=== PATIENT | male | born 1975 | race Caucasian/White ===

== ENCOUNTER 2019-08-16 07:29 | Emergency (ER) | payer OTHER, SELFPAY ==
[2019-08-16 07:31] VITALS: BP 157/119; PULSE 70; RESP 17; TEMP 36.3; O2SAT 99; BMI 30.7
--- NOTE | 2019-08-16 07:35 | CT_ITS ---
STUDY: CT ABDOMEN AND PELVIS WITHOUT CONTRAST REASON FOR EXAM: Male, 43 years old. RT FLANK PAIN W/ HEMATURIA RADIATION DOSAGE (If Supplied By Facility): CTDIvol = ( 12.52 ) mGy, DLP = ( 642.17 ) mGycm TECHNIQUE: Transaxial images were obtained from the dome of the diaphragm to the symphysis pubis without oral contrast, and without intravenous contrast. Sagittal and coronal images were reconstructed. Individualized dose optimization techniques were used for this CT. COMPARISON: October 19, 2013. FINDINGS: Lung bases: Minimal congestion. Tiny 2-3 mm right lung base nodules (axial images 2 through 6 series 1002). Heart: Unremarkable. Liver: Diffuse hepatic steatosis. No focal hepatic lesions given noncontrast technique. Gallbladder/biliary ducts: Unremarkable. Pancreas: Unremarkable. Spleen: Punctate splenic granuloma (axial image 32 series 1002). Adrenal glands: Unremarkable. Kidneys/ureters/bladder: Acute minimally obstructive right distal ureteral stone (axial image 156 series 1002) measuring 3 mm. Subtle minimally dilated right ureter. Minimal right perinephric and periureteral fat stranding. No additional renal, ureteral or bladder stones identified. Underdistended urinary bladder. Prostate: Punctate prostate calcification. Large bowel/small bowel: Unremarkable. Appendix: Unremarkable (axial image 112 series 1002). Gastroesophageal junction/stomach: Unremarkable. Retroperitoneum/lymph nodes: No intra-abdominal free air. No ascites. No pathologically enlarged lymph nodes. Vascular: Trace vascular calcifications. No aneurysm. Osseous structures: Mild degenerative features. No acute process. Subcutaneous/soft tissues: Tiny fat-containing umbilical hernia. No acute process. CT/Abdomen/Pelvis without Cont IMPRESSION: Acute minimally obstructive right distal ureteral 3 mm stone Minimal right perinephric and periureteral fat stranding concerning for potential infection (correlate urinalysis and WBC) Stable small lung nodules (statistically benign given unchanged appearance since 2013) Nonemergent findings, as above Electronically Signed: Sarkis Cleveland DO at 8:28 EDT Tel , Service support ,
--- NOTE | 2019-08-16 07:35 | ED.VIS.GEN ---
History of Present Illness Chief Complaint: Flank Pain Informant: Patient Onset: Today Context: Sudden Onset Timing: Intermittent Current Severity: Moderate Maximum Severity: Severe Narrative: The patient is an otherwise healthy 43-year-old male that presents to the emergency department with rather sudden onset right-sided flank pain, nausea, and hematuria. Patient states last night, he had a dull ache in his right flank. He states this morning, the pain got acutely worse. He states it would come in waves. On the way here, he states that he was feeling better, but then the pain came back. He has been mildly nauseated. He denies any fevers or chills. He has no history of prior kidney stone. He is otherwise been in his normal state of health. Prior similar symptoms: No Recent Illness/Hospitalization: No Past Medical History - Allergies and Home Meds Allergies/Adverse Reactions: Allergies bee venom protein (honey bee) Allergy (Verified 08/16/19 07:30) Anaphylaxis Primary Care Physician: Davis Frost DO [Primary Care Provider] - Prior records reviewed: Yes Past Medical History: None Surgical History: noncontributory, - - Knee surgeries Smoking Status: Never smoker - Family History Maternal Family History: Reports: No pertinent history Review of Systems General: Denies: Chills, Fever, Sweats Eyes: Denies: Visual changes - bilaterally, Diplopia ENT: Denies: Rhinorrhea, Sore throat Cardiovascular: Denies: Chest pain, Palpitations Respiratory: Denies: Dyspnea, Cough, Dyspnea on exertion Gastrointestinal: Reports: Nausea. Denies: Abdominal pain, Vomiting, Diarrhea, Melena, Hematochezia Genitourinary: Reports: Hematuria. Denies: Dysuria, Frequency Musculoskeletal: Reports: Back pain. Denies: Extremity Pain Skin: Denies: Rash, Wounds Neurological: Denies: Headache, Weakness, Numbness Physical Exam Vital Signs/Narrative: Vital Signs Temp Pulse Resp BP Pulse Ox 08/16/19 07:31 97.3 F L 70 17 157/119 H 99 Inital Vital Signs reviewed: Yes General: Well nourished, Well developed, No Acute Distress Head: Normocephalic, Atraumatic Eyes: Perrl, EOMI ENT: Moist mucous membranes, No rhinorrhea Neck: Supple, Nontender Cardiovascular: Regular rate, Regular rhythm, No murmurs Respiratory: No distress, CTA bilaterally, Chest nontender Abdomen: Soft, Nontender, Nondistended, Normal bowel sounds Back: Nontender, Normal Inspection Extremities: Nontender, No edema Skin: Normal color, No rash Neurological: Alert, Oriented x3, Cranial nerves II-XII grossly intact, Normal Strength, Normal Sensation Psychological: Normal affect, Normal Mood Diagnostic/Tx/Re-eval Clinical Impression(s) from Imaging Studies Abdomen/Pelvis CT 08/16/19 07:35 IMPRESSION: Acute minimally obstructive right distal ureteral 3 mm stone Minimal right perinephric and periureteral fat stranding concerning for potential infection (correlate urinalysis and WBC) Stable small lung nodules (statistically benign given unchanged appearance since 2013) Nonemergent findings, as above Electronically Signed: Sarkis Cleveland DO at 8:28 EDT Tel , Service support , - Medical Decision Making The patient presents with rather acute onset right flank pain into his right lower quadrant associated with nausea and hematuria. Patient states he is never had symptoms like this before. He was medicated with anti-inflammatories, analgesics, and antiemetics. He did have some improvement of his pain but was still rather uncomfortable. Patient had re-dose of his medications. CT does show a small distal obstructing stone of 2 or 3 mm. Urine does not show evidence of infection. On reevaluation, the patient is resting comfortably. At this point, given the size and location of the stone, along with the fact that his pain is controlled, I do feel that he is safe for outpatient follow-up with urology. He was counseled on concerning symptoms and reasons to return. He will be discharged home. Impression 1. 3 mm right UVJ stone ED Disposition - Plan for ED Patient: Instructions: ED Renal Stone w Colic Prescriptions: Oxycodone HCl/Acetaminophen [Percocet 5/325] 1 tab PO Q6H PRN PRN 3 Days #12 tab PRN Reason: Pain Prescription Printed Ondansetron [Zofran Odt] 4 mg PO Q8H PRN PRN #10 tab PRN Reason: Nausea Prescription Printed Referrals: Odilon Williamson MD [STAFF PHYSICIAN] -
[2019-08-16 07:54] LABS: Absolute Lymphocyte Count 2.35 X10^3/uL (0.83-4.51); Absolute Neutrophil Count 4.6 X10^3/uL (2.0-7.7); Basophil# 0.04 X10^3/uL; Basophil% 0.5 % (0-1); Eosinophil# 0.15 X10^3/uL; Eosinophils% 1.9 % (0-5); Hematocrit 44.3 % (40-54); Hemoglobin 14.7 g/dL (13.0-16.5); Lymphocyte # 2.35 X10^3/ul (4.0); Lymphocyte % 30.5 % (19-41); Mean Corp Hgb Conc 33.2 g/dL (32-36); Mean Corpuscular Volume 96.5 fL (80-94); Monocyte# 0.55 X10^3/uL; Monocyte% 7.1 % (0-10); NRBC Flagged by Analyzer 0 % (0-5); Neutrophil % 59.7 % (47-70); Platelet Count 243 K/mm3 (150-450); RBC Distribution Width CV 12.5 % (11.6-14.6); RBC Distribution Width SD 44.1 fl (35.1-43.9); Red Blood Count 4.59 M/mm3 (4.6-6.2); White Blood Count 7.7 K/mm3 (4.4-11.0)
[2019-08-16] MEDS: Ketorolac 30 MG/ML Syringe IV (07:55)
[2019-08-16] MEDS: Ondansetron 4 MG/2 ML Vial IV (07:55)
[2019-08-16] MEDS: Morphine 4 MG/ML Syringe IV (07:56)
[2019-08-16] MEDS: 0.9% Normal Saline 1,000 ML 250 ML IV (07:57)
[2019-08-16 08:02] LABS: Bacteria 0 SEEN /hpf (None Seen); Mucous, Urine 0 SEEN /hpf (<or=2+); Squamous Epithelial Cells - UA 0 SEEN /hpf (0-5); White Blood Cells 0 SEEN /hpf (0-5)
[2019-08-16 08:05] LABS: Color, Urine Red (Yellow); Glucose, Dipstick Normal (Normal); Ketone-Dipstick 5 mg/dl (Negative); Leukocyte Esterase-Dipstick 25 /ul (Negative); Nitrite-Dipstick Negative (Negative); Occult Blood-Urine 250 /ul (Negative); Protein-Dipstick 100 mg/dl (Negative); Urine Bilirubin Dipstick Negative (Negative); Urine Clarity Turbid (Clear); Urine Urobilinogen Normal (Normal)
[2019-08-16 08:14] LABS: Red Blood Cells-Urine > 100 SEEN /hpf (0-5)
[2019-08-16] MEDS: HYDROmorphone 1 MG/ML Syringe IV (08:17)
[2019-08-16] MEDS: proMETHazine 25 MG/ML Syringe 6.25 MG IV (08:17)
[2019-08-16 08:52] LABS: Anion Gap 5 (5-15); BUN 18 mg/dL (7-18); Calcium,Total 9.1 mg/dL (8.5-10.1); Chloride 105 mmol/L (98-107); EST Glomerular Filtration Rate 71 mL/min (>60); Est Glom Filt Rate - Afr Amer 86 mL/min (>60); Glucose 143 mg/dL (74-106); Potassium 3.9 mmol/L (3.5-5.1); Sodium Level 140 mmol/L (136-145)
[2019-08-16 09:18] VITALS: BP 118/79; PULSE 78; RESP 16; O2SAT 98
== END 2019-08-16 09:19 | disposition home or self-care (01) ==
LOC: ED 08:30
PROVIDERS: Emergency Provider Emergency Medicine; PCP Student in an Organized Health Care Education/Training Program
DX: N20.1 Calculus of ureter (principal)
CPT/HCPCS: 74176; 80048; 81001; 85025; 96361; 96374; 96375; 99283; J7030; A4216; J2405

== ENCOUNTER 2021-03-06 08:25 | Emergency (ER) | payer OTHER, SELFPAY ==
[2021-03-06 08:26] VITALS: BP 146/84; PULSE 112; RESP 18; TEMP 36.6; O2SAT 93; BMI 31.4
--- NOTE | 2021-03-06 08:53 | EX.ED.DYSGE1 ---
HPI History of Present Illness Chief Complaint: General Illness Narrative Narrative: 45-year-old male with no significant past medical history reported states that he is on day 11 of COVID-19 symptoms. He tested positive on the sixth. He does no longer have fever or chills. He does not have nausea or vomiting. He does state that he has a little bit of decreased p.o. intake but has been drinking plenty of fluids. He is making urine and stool. He denies chest pain, or abdominal pain. He reports that he had difficulty sleeping last night and when he falls asleep he would wake up and feel like he was short of breath. He did not have any chest pain with this. It resolves immediately upon awakening. He does not have a known history of sleep apnea. He does not think he has been snoring. This is a new issue in the last day or so. Patient reports a mild nonproductive cough. PFSH PFSH Medical History no medical history Home Medications aspirin 81 mg PO DAILY@0800 10/19/13 [History Last Taken 10/18/13] niacin 500 mg PO DAILY 10/19/13 [History Last Taken 10/18/13] acetaminophen 650 mg PO Q6H PRN PRN #20 tab 10/21/13 [Rx Last Taken Unknown] docusate sodium [DOK] 200 mg PO BID PRN PRN #20 capsule 10/21/13 [Rx Last Taken Unknown] ondansetron 4 mg PO Q8H PRN PRN #10 tab 08/16/19 [Rx Last Taken Unknown] dexamethasone 6 mg PO DAILY #7 tab 03/06/21 [Rx Last Taken Unknown] Allergy/AdvReac Type Severity Reaction Status Date / Time bee venom protein (honey bee) Allergy Anaphylaxis Verified 03/06/21 08:28 Family History Father Heart disease CVA (cerebral vascular accident) Social History Smoking Status: Never smoker alcohol intake: current alcohol intake frequency: other Alcohol type: beer, wine and hard liquor details: drinks x1wk ROS ROS ED Constitutional Constitutional ED: Denies chills or fever(s) Eyes Eyes: Denies blurry vision or diplopia ENT ENT ED: Denies rhinorrhea or sore throat Cardiovascular Cardiovascular: Denies chest pain or palpitations Respiratory/Chest Respiratory/Chest: Reports cough and other Details: Waking up with dyspnea. No dyspnea with exertion Gastrointestinal Gastrointestinal: Denies abdominal pain or nausea Genitourinary Genitourinary ED: Denies dysuria or hematuria Musculoskeletal Musculoskeletal: Denies arthralgias or myalgias Integumentary Denies abscess or rash Neurologic Neurologic: Denies headache(s), paresthesias or weakness EXAM Physical Exam Const Vital Signs: 03/06/21 08:26 03/06/21 10:29 Temperature 97.9 F Temperature Source Temporal Pulse Rate 112 H Respiratory Rate 18 Respiratory Depth Normal Respiratory Pattern Normal Blood Pressure 146/84 H Blood Pressure Mean 104 Pulse Ox 93 89 Oxygen Delivery Method Room Air Room Air Positive well nourished General Appearance ED: NAD; Negative for pallor HEENT Reports moist mucous membranes Negative for trauma Eyes PERRL and EOMs intact bilaterally General Eye ED: Negative for pale conjunctiva or scleral icterus Chest Wall inspection of chest normal and palpation of chest normal Resp normal respiratory effort and clear to auscultation bilaterally Cardio regular rate and regular rhythm GI normal to inspection, nondistended, normoactive bowel sounds Neuro oriented x3, CN's II-XII intact bilaterally and no sensory deficits noted Sensorium / Orientation: alert Motor Exam: strength 5/5 throughout Psych mental status grossly normal Skin no rashes or lesions noted General Skin Exam: Negative for jaundice or pallor MDM MDM MDM Narrative Medical decision making narrative: Patient was initially presenting for shortness of breath while sleeping. He was not hypoxic on arrival was 93% on room air. He did not appear dyspneic. His lungs sound clear. He is not tachycardic. He denies any chest pain. He is not having fever and chills anymore. Patient was more concerned that he was gasping for air when awakening. He has no history of sleep apnea. After evaluating him I had him ambulated on pulse ox without oxygen he desaturated down to 88%. He was placed on 2 L nasal cannula and eventually improved to 89 to 90%. This was removed but he maintains an O2 sat of 89% on room air. Given this I did obtain some blood work and his CBC and BMP are unremarkable. LFTs show a slight bump in his AST and ALT. High-sensitivity troponin is negative at 8. Again the patient is not complaining of any chest pain and specifically no pleuritic chest pain. His chest x-ray shows patchy bilateral pulmonary infiltrates on my interpretation and the radiologist does agree. Patient will be set up for home O2 at home. I have low suspicion for PE currently. He will be started on dexamethasone with the first dose in the ER. Patient is to monitor his pulse ox at home and return for any worsening. Impression: 1. COVID-19 pneumonitis 2. Hypoxic respiratory failure Lab Data Attestation: I reviewed the patient's lab results. Labs: Laboratory Results - last 24 hr 03/06/21 03/06/21 10:25 10:25 WBC 4.8 RBC 4.38 L Hgb 14.3 Hct 40.4 MCV 92.2 MCH 32.6 H MCHC 35.4 RDW Std Deviation 46.1 H RDW Coeff of Dave 13.3 Plt Count 208 MPV 9.9 Immature Gran % (Auto) 0.400 Neut % (Auto) 71.0 H Lymph % (Auto) 20.2 Gilchrist % (Auto) 8.2 Eos % (Auto) 0.0 Baso % (Auto) 0.2 Absolute Neuts (auto) 3.4 Absolute Lymphs (auto) 0.96 Nucleated RBC % 0 Sodium 134 L Potassium 3.7 Chloride 97 L Carbon Dioxide 27.0 Anion Gap 10 BUN 9 Creatinine 0.96 Estim Creat Clear Calc 89.53 Est GFR (MDRD) Af Amer 109 Est GFR (MDRD) Non-Af 90 BUN/Creatinine Ratio 9.3 L Glucose 106 Calcium 8.6 Total Bilirubin 0.80 AST 61 H ALT 65 H Alkaline Phosphatase 68 Troponin I High Sens 8 Total Protein 7.2 Albumin 3.5 Globulin 3.7 Albumin/Globulin Ratio 0.9 Radiography Diagnostic Testing: Clinical Impression(s) from Imaging Studies Chest X-Ray 03/06/21 10:09 IMPRESSION: Patchy bilateral interstitial infiltrates could reflect early multifocal pneumonia. Electronically Signed: Arash Tate, at 10:55 EST Tel , Service support , Discharge Plan Triage Chief Complaint: General Illness ED Provider: Jez Mina Dx/Rx/DC Orders Clinical Impression: COVID-19 Instructions: Coronavirus Disease 2019 (COVID-19): Caring for Yourself or Others, COVID-19: Lying in a Prone Position (Proning) Prescriptions: New dexamethasone 6 mg tablet 6 mg PO DAILY Qty: 7 RF: 0 No Action niacin 500 MG tablet extended release 24 hr 500 mg PO DAILY RF: 0 aspirin 81 MG tablet,chewable 81 mg PO DAILY@0800 RF: 0 acetaminophen 325 MG tablet 650 mg PO Q6H PRN PRN (Reason: Mild Pain (scale 0-3)/T>100.7) Qty: 20 RF: 0 docusate sodium [DOK] 100 MG capsule 200 mg PO BID PRN PRN (Reason: Constipation ) Qty: 20 RF: 0 ondansetron 4 MG tablet 4 mg PO Q8H PRN PRN (Reason: Nausea) Qty: 10 RF: 0 Primary Care Provider: Davis Frost Referrals: Davis Frost DO [Primary Care Provider] - Disposition Disposition: Home, Self Care
--- NOTE | 2021-03-06 10:09 | EKG12_ITS ---
Test Reason : GEENERAL ILLNESS Blood Pressure : / mmHG Vent. Rate : 099 BPM Atrial Rate : 099 BPM P-R Int : 136 ms QRS Dur : 094 ms QT Int : 342 ms P-R-T Axes : 055 004 008 degrees QTc Int : 438 ms Normal sinus rhythm Inferior infarct , age undetermined Abnormal ECG Confirmed by RADHA POTTER, JUAQUIN ([id number]), deputy editor in chief MEHNAZ RIVERA ([id number]) on 03/08/2021 10:19:21 AM Referred By: EFRAÍN Confirmed By:JUAQUIN GARCIA MD
--- NOTE | 2021-03-06 10:09 | RAD_ITS ---
STUDY: X-RAY CHEST REASON FOR EXAM: Male, 45 years old. Cough TECHNIQUE: Single AP portable view of the chest. COMPARISON: 8.14. FINDINGS: Patchy bilateral interstitial infiltrates worse on the left side. Hypoventilatory changes. There is no demonstrated pleural abnormality. Normal size heart. Normal mediastinum and juan. Normal visualized pulmonary arteries. Normal visualized aortic arch and descending thoracic aorta. Normal visualized thoracic spine. Normal visualized ribs, clavicles, and shoulders. There is no demonstrated abnormality of the visualized soft tissue structures of the upper abdomen. RAD/Chest 1 View (Portable) IMPRESSION: Patchy bilateral interstitial infiltrates could reflect early multifocal pneumonia. Electronically Signed: Arash Tate, at 10:55 EST Tel , Service support ,
[2021-03-06 10:13] VITALS: O2SAT 89
--- NOTE | 2021-03-06 10:14 | ED.RN ---
pt 89% room air semi-fowlers position. maintained 89-88% room air with walking in room. denies sob during or after. physician advisd.
[2021-03-06 10:29] VITALS: O2SAT 89
[2021-03-06 10:36] LABS: Absolute Lymphocyte Count 0.96 X10^3/uL (0.83-4.51); Absolute Neutrophil Count 3.4 X10^3/uL (2.0-7.7); Basophil# 0.01 X10^3/uL; Basophil% 0.2 % (0-1); Hematocrit 40.4 % (40-54); Hemoglobin 14.3 g/dL (13.0-16.5); Lymphocyte # 0.96 X10^3/ul (0.83-4.51); Lymphocyte % 20.2 % (19-41); Mean Corp Hgb Conc 35.4 g/dL (32-36); Mean Corpuscular Hgb 32.6 pg (27.0-32.0); Mean Corpuscular Volume 92.2 fL (80-94); Mean Platelet Vol. 9.9 fl (6.2-12.0); Monocyte# 0.39 X10^3/uL; Monocyte% 8.2 % (0-10); NRBC Flagged by Analyzer 0 % (0-5); Neutrophil # 3.38 X10^3/uL (2.7-7.7); Platelet Count 208 K/mm3 (150-450); RBC Distribution Width CV 13.3 % (11.6-14.6); RBC Distribution Width SD 46.1 fl (35.1-43.9); Red Blood Count 4.38 M/mm3 (4.6-6.2); White Blood Count 4.8 K/mm3 (4.4-11.0)
[2021-03-06 10:55] LABS: ALB/GLOB Ratio 0.9 RATIO (0.9-2.4); AST(SGOT) 61 U/L (15-37); Alanine Aminotransfer ALT/SGPT 65 U/L (16-61); Albumin, Serum 3.5 g/dL (3.2-5.0); Alkaline Phosphatase 68 U/L (45-117); Anion Gap 10 (5-15); BUN 9 mg/dL (7-18); BUN/Creat Ratio 9.3 RATIO (10-20); Calcium,Total 8.6 mg/dL (8.5-10.1); Chloride 97 mmol/L (98-107); Creatinine, Serum 0.96 mg/dL (0.70-1.30); EST Glomerular Filtration Rate 90 mL/min (>60); Est Glom Filt Rate - Afr Amer 109 mL/min (>60); Estimated Creatinine Clearance 89.53 ml/min; Globulin 3.7 g/dL (2.2-4.2); Glucose 106 mg/dL (74-106); Potassium 3.7 mmol/L (3.5-5.1); Protein, Total 7.2 g/dL (6.4-8.2); Sodium Level 134 mmol/L (136-145); Troponin-I HS 8 pg/mL (3.0-78.0)
[2021-03-06] MEDS: dexAMETHasone 10 MG/ML Vial 6 MG IV (11:41)
[2021-03-06 12:38] VITALS: PULSE 98; RESP 18; TEMP 36.7; O2SAT 91
--- NOTE | 2021-03-06 13:36 | ED.RN ---
[facility] to bring home O2 and deliver to pts in parking lot. eta 45min. pt verbalizes understanding.
--- NOTE | 2021-03-06 13:50 | CM.ED ---
OLIVER Note OLIVER was advised by quencher operator, Maricruz, that patient needed home oxygen. Toby BATISTA completed the prescription form and signed form. OLIVER called [facility] patron attendant and made a referral. OLIVER faxed referral packet to [facility]. OLIVER received call from Vera from [facility]. They have no tanks but will get some Monday. OLIVER called [facility] and made a referral. Oliver spoke to Deisy at [facility] and she reports that since patient is covid positive a family member must get the tank as they can not deliver the tank to patient. OLIVER and RN spoke to patient. His is in the car in parking lot and can receive the tank and instructions. OLIVER received call from Deisy and she said that her boss is not aware of [employer], which is the insurance patient reported he had. OLIVER advised, and confirmed with registration, that patient had [employer] [facility]. Deisy will call her boss to check on insurance acceptance. Deisy called back and said that patient had a 20 % copay and inquired if the patient was comfortable with that and oliver asked patient and he said that copay was fine and he voiced understanding of his responsibility. [facility]. OLIVER updated MD and RN, Nesha Guerra sent email to [employer]. Plan: Home with Home oxygen Bridgette QUIROZ
--- NOTE | 2021-03-08 17:25 | CASEMGMT ---
[facility] ED COVID Home O2 Follow-up: This [facility] contacted pt via phone for follow-up to home O2 set-up from the ED. Pt states his breathing is so-so and that he continues to wear the O2. Pt reports his PO to be 94-95% with the O2 on and 85-89% with it off. Instructed pt to wear his O2 continuously and to maintain his PO in the 90's. Pt expressed understanding. Pt states he was provided enough O2 tubing to navigate his home. Pt states he was unable to get the decadron on Monday due to the pharmacy closing but picked it up today and started to take as instructed. Pt reports feeling better with decreased cough since starting the medication. Pt report SOB with coughing. Pt also states he is not sleeping well as he is unable to get comfortable and has increased coughing. Encouraged pt to contact his PCP for any additional tx that may decreased these issues and promote sleep. Pt states his had messaged Dr. Frost today but they had not heard back. Encouraged pt to reach back out if they do not get a response. Pt expressed understanding. Pt states he was able to eat more today and continues to drink. Pt states he is remaining quarantined and reviewed 14 days from onset of symptoms as 03/10. Reviewed prone positioning which pt states he attempted but was unable to tolerate. Pt denies any further questions or concerns. Kirill Velasco RN CM
--- NOTE | 2021-03-11 17:33 | CASEMGMT ---
[facility] ED COVID Home O2 Follow-up: This RN CM contacted pt for follow-up. Pt states he is feeling pretty good. Denies any c/o SOB. States he continues to wear his home O2 at 3l/min and reports his PO to be 95% or greater. Pt states he has a follow-up appointment tomorrow 03/12 at 3pm with a covering physician for Dr. Frost. Pt denies any questions or concerns at this time. Kirill Velasco RN CM
== END 2021-03-06 14:58 | disposition home or self-care (01) ==
PROVIDERS: Emergency Provider Student in an Organized Health Care Education/Training Program; PCP Student in an Organized Health Care Education/Training Program
DX: U07.1 COVID-19 (principal); J12.82 Pneumonia due to coronavirus disease 2019; J96.91 Respiratory failure, unspecified with hypoxia
CPT/HCPCS: 71045; 80053; 84484; 85025; 93005; 96374; 99285; A4216

== ENCOUNTER → 2021-07-23 | Outpatient (CLI) | payer OTHER, SELFPAY | END | disposition home or self-care (01) | LOC: SL 20:20 | PROVIDERS: PCP Student in an Organized Health Care Education/Training Program; Referring Provider Student in an Organized Health Care Education/Training Program; Visit Provider Student in an Organized Health Care Education/Training Program | DX: G47.33 Obstructive sleep apnea (adult) (pediatric) (principal) | CPT/HCPCS: 95811 ==